=== PATIENT | male | born 1955 | race Caucasian/White ===

== ENCOUNTER → 2017-01-23 | Outpatient (CLI) | payer BC ==
[2017-01-23 12:41] LABS: CHOLESTEROL/HDL RATIO 3.5; FERRITIN 76.9 ng/ml (8.0-388.0)
== END | disposition home or self-care (01) ==
LOC: C.LAB 11:12
DX: E78.5 Hyperlipidemia, unspecified (principal); E83.119 Hemochromatosis, unspecified

== ENCOUNTER → 2017-01-31 | Outpatient (CLI) | payer BC ==
[2017-01-31 09:07] LABS: ESTIMATED AVERAGE GLUCOSE 100 mg/dl; HA1C FLAG Normal (Normal)
[2017-01-31 09:19] LABS: RHEUMATOID FACTOR < 10.0 U/mL (0-15)
[2017-01-31 12:27] LABS: LYME DISEASE AB IGG NEG (NEG)
[2017-01-31 12:28] LABS: LYME DISEASE AB IGM NEG (NEG)
[2017-02-01 03:15] LABS: RAPID PLASMA REAGIN NONREACTIVE (NONREACT)
[2017-02-03 08:22] LABS: ANTI-SS-A <1.0 NEG AI (<1.0 NEG); ANTI-SS-B <1.0 NEG AI (<1.0 NEG); GLIADIN DEAMIDATED IgA AB 8 UNITS (<20); GLIADIN DEAMIDATED IgG AB 5 UNITS (<20)
== END | disposition home or self-care (01) ==
LOC: C.LAB 07:29
PROVIDERS: ATTEND Psychiatry & Neurology Neurology
DX: G60.9 Hereditary and idiopathic neuropathy, unspecified (principal)

== ENCOUNTER → 2017-04-20 | Outpatient (CLI) | payer BC ==
[2017-04-20 19:46] LABS: BLOOD UREA NITROGEN 17 mg/dl (7-18); CREATININE 0.93 mg/dl (0.60-1.40)
== END | disposition home or self-care (01) ==
LOC: C.LAB 18:39
PROVIDERS: ATTEND Psychiatry & Neurology Neurology
DX: G60.9 Hereditary and idiopathic neuropathy, unspecified (principal)

== ENCOUNTER → 2017-04-28 | Outpatient (CLI) | payer BC ==
--- NOTE | 2017-04-28 18:13 | DIAGNOSTIC IMAGING REPORT ---
CHEST 2 VIEWS ROUTINE CLINICAL HISTORY: Neuropathy. Smoking history. COMPARISON STUDY: No previous studies for comparison. FINDINGS: The lung volumes are normal. There is no pneumothorax or pleural effusion. No consolidation is identified. No pulmonary nodules identified although sensitivity for detection of pulmonary nodules is diminished given radiographic technique. Cardiac size is normal. Mediastinal contours are normal. There is no evidence for pulmonary edema. IMPRESSION: 1. No acute cardiopulmonary findings. 2. No pulmonary nodules identified however sensitivity diminished given radiographic technique. If persistent clinical suspicion for intrathoracic malignancy, a chest CT is recommended. Electronically signed by: Liang Perez M.D. 04/28/2017 6:11 PM Dictated Date/Time: 04/28/2017 6:10 PM
== END | disposition home or self-care (01) ==
LOC: C.RAD 17:45
PROVIDERS: ATTEND Psychiatry & Neurology Neurology
DX: Z87.891 Personal history of nicotine dependence (principal)

== ENCOUNTER → 2017-07-04 | Outpatient (CLI) | payer BC | END | disposition home or self-care (01) | LOC: C.LAB 13:53 | DX: E78.5 Hyperlipidemia, unspecified (principal); E83.10 Disorder of iron metabolism, unspecified; G62.9 Polyneuropathy, unspecified; M19.90 Unspecified osteoarthritis, unspecified site ==